=== PATIENT | male | born 1995 | race Caucasian/White ===

== ENCOUNTER 2019-02-17 21:16 | Emergency (ER) | payer MEDICAID ==
--- NOTE | 2019-02-17 21:21 | ED Physician Documentation ---
History of Present Illness - Stated complaint Stated Complaint: ANXIOUS/ARMS AND FACE TINGLING - History obtained from History obtained from: Patient - History of Present Illness Timing: Today Pain level max: 0 Pain level now: 0 Improved by: nothing Worsened by: no exacerbating factors - Additonal information Additional information: c/o palpitations (heart racing), anxiety, tingling paresthesias of hands and feet. symptoms have been gradually worsening since gradual onset earlier tonight. He admits to drinking alcohol to excess last night during his bachelor constitution party, and admits to snorting cocaine. He has had similar symptoms in the past which have been attributed to panic attacks Review of Systems Constitutional: reports: Reviewed and negative Cardiac: reports: Palpitations. denies: Chest pain / pressure Respiratory: reports: Reviewed and negative GI: reports: Reviewed and negative Neurologic: denies: Generalized weakness, Focal weakness, Numbness, Headache Psychiatric: reports: Anxiety. denies: Depressed, Suicidal, Homicidal, Hallucinations, Delusions PD PAST MEDICAL HISTORY - Past Medical History Past Medical History: No - Present Medications Home Medications: Ambulatory Orders Medication Instructions Recorded Confirmed LORazepam [Lorazepam] 0.5 - 1 mg PO TID PRN #14 tablet 02/17/19 - Allergies Allergies/Adverse Reactions: Allergies Allergy/AdvReac Type Severity Reaction Status Date / Time No Known Drug Allergies Allergy Verified 02/17/19 21:25 - Living Situation Living Arrangement: reports: At home PD ED PE NORMAL - Vitals Vital signs reviewed: Yes - General General: Alert and oriented X 3, Well developed/nourished, Other (appears anxious, pacing room. however, he is smiling and conversant, articulate and appropriate answers) - HEENT HEENT: PERRL, EOMI, Moist mucous membranes - Neck Neck: Supple, no meningeal sign - Cardiac Cardiac: RRR, No murmur, No gallop, No rub - Respiratory Respiratory: No respiratory distress, Clear bilaterally - Neuro Neuro: Alert and oriented X 3, machine hoop maker 2-12 intact, No motor deficit, No sensory deficit, Normal speech Results - Vitals Vitals: Oxygen O2 Source Room air PD MEDICAL DECISION MAKING - ED course Complexity details: considered differential, d/w patient ED course: appears anxious. declines medications in ED (we discussed ativan, atarax). he seemed to feel better with reassurance, and says he would prefer to wait it out rather than take medication. he was agreeable to rx for lorazepam; he was still anxious and pacing when discharged, and I explained that he would likely experience symptomatic relief with the lorazepam. He will be returning home to [place] where there should be a 24-hour pharmacy should he decide to use the medication Departure - Departure Disposition: 01 Home, Self Care Clinical Impression: Anxiety Condition: Good Instructions: ED Panic Attack Prescriptions: LORazepam [Lorazepam] 0.5 - 1 mg PO TID PRN #14 tablet PRN Reason: Anxiety Discharge Date/Time: 02/17/19 22:20
[2019-02-17 21:25] VITALS: BP 117/85
== END 2019-02-17 22:20 | disposition home or self-care (01) ==
LOC: ED 21:16
DX: F41.9 Anxiety disorder, unspecified (principal)
CPT/HCPCS: 99283